=== PATIENT | male | born 1960 | race Caucasian/White ===

== ENCOUNTER 2023-03-11 06:02 | Day surgery (SDC) | payer OTHER ==
[2023-03-10 10:25] VITALS: BMI 25.5
[2023-03-11] MEDS ORDERED: PROPOFOL 40 ML ONE ×2 (07:52→08:24)
== END 2023-03-11 09:14 | disposition home or self-care (01) ==
LOC: CSHSDC 06:02
PROVIDERS: ATTEND Internal Medicine Gastroenterology
PROC: 0DBN8ZZ Excision of Sigmoid Colon, Via Natural or Artificial Opening Endoscopic (ICD-10-PCS; principal; 2023-03-11)
DX: Z12.11 Encounter for screening for malignant neoplasm of colon (principal); K63.5 Polyp of colon; K64.8 Other hemorrhoids
CPT/HCPCS: 88305; J2704